=== PATIENT | female | born 1945 | race American Indian/Alaskan Native ===

== ENCOUNTER 2016-09-29 07:45 | Inpatient (IN) | payer MEDICARE ==
[2013-02-22 12:49] VITALS: BMI 28.3
[2016-09-29] MEDS ORDERED: Bacitracin 150,000 UNIT in Sodium Chloride 0.9% Irrig 3,000 ML IR SCH (10:31)
[2016-09-29] MEDS ORDERED: Bupivacaine Liposomal Inj 20 ml INFIL ONE (11:17)
[2016-09-29] MEDS ORDERED: ceFAZolin IV 2 gm in Dextrose 1 GM/50 ML BAG IVPB ONE (11:28)
[2016-09-29] MEDS ORDERED: Lactated Ringer's 1,000 ML IV ONE ×2 (11:35→13:57)
[2016-09-29] MEDS ORDERED: Propofol 10 mg/ml Inj (20 ML) ONE (11:35)
--- NOTE | 2016-09-29 11:41 | CP.PCM.HP ---
History of Present Illness - History of Present Illness History of Present Illness: 70F with right shoulder DJD and rotator cuff complete tear failed conservative mgmt and elected for total shoulder replacement. PAT and clearance on chart Dr. Clarke, reviewed. Present on Admission - Present on Admission Any Indicators Present on Admission: No Review of Systems - Review of Systems All systems: reviewed and no additional remarkable complaints except - Musculoskeletal Musculoskeletal: As Per HPI - Hematologic/Lymphatic Hematologic: absent: As Per HPI, Easy Bleeding, Easy Bruising, Lymphadenopathy, Other Past Patient History - Past Medical History & Family History Past Medical History?: Yes - Past Social History Smoking Status: Light Smoker < 10 Cigarettes Daily - CARDIAC Hx Cardiac Disorders: No - PULMONARY Hx Respiratory Disorders: No - NEUROLOGICAL Hx Neurological Disorder: No - HEENT Hx HEENT Problems: No - RENAL Hx Chronic Kidney Disease: No - ENDOCRINE/METABOLIC Hx Endocrine Disorders: Yes Hx Diabetes Mellitus Type 2: Yes - HEMATOLOGICAL/ONCOLOGICAL Hx Blood Disorders: No - INTEGUMENTARY Hx Dermatological Problems: Yes Other/Comment: HX: LEFT BREAST MASS - MUSCULOSKELETAL/RHEUMATOLOGICAL Hx Musculoskeletal Disorders: Yes Hx Arthritis: Yes Hx Falls: Yes Other/Comment: HX: FX: LEFT PATELLA. HX: SPRAIN RIGHT ROTATOR CUFF - GASTROINTESTINAL Hx Gastrointestinal Disorders: Yes - GENITOURINARY/GYNECOLOGICAL Hx Genitourinary Disorders: No - PSYCHIATRIC Hx Psychophysiologic Disorder: No Hx Substance Use: No - SURGICAL HISTORY Hx Surgeries: Yes Hx Orthopedic Surgery: Yes (REPAIR FX. LEFT KNEE-PATELLA) Other/Comment: HX: LEFT BREAST LUMPECTOMY - ANESTHESIA Hx Anesthesia: Yes Hx Anesthesia Reactions: No Hx Malignant Hyperthermia: No Meds Allergies/Adverse Reactions: Allergies Allergy/AdvReac Type Severity Reaction Status Date / Time No Known Allergies Allergy Verified 02/22/13 12:47 Physical Exam - Expanded Upper Extremities Exam Right Shoulder exam: tenderness, tenderness over AC joint, normal inspection Elbow exam: full ROM Forearm Wrist exam: normal inspection Neuro motor exam: finger 2-5 abduction intact, thumb abduction, thumb IP flexion intact, thumb opposition intact, wrist extension intact Neurosensory exam: median nerve intact, radial nerve intact, ulnar nerve intact Vascular exam: radial pulse, ulnar pulse Results - Vital Signs Recent Vital Signs: Last Vital Signs Temp 96.4 F L 09/29/16 09:13 Pulse 62 09/29/16 09:13 Resp 20 09/29/16 09:13 BP 101/56 L 09/29/16 09:13 Pulse Ox 96 09/29/16 09:13 - Labs Result Diagrams: 09/30/16 08:08 09/30/16 08:08 Labs: Laboratory Results - last 24 hr 09/29/16 09/29/16 09:40 09:59 POC Glucose (mg/dL) 189 H Blood Type O POSITIVE Antibody Screen Negative Assessment & Plan (1) Degenerative joint disease, shoulder, right Assessment and Plan: NPO for total shoulder replacement Status: Acute (2) Diabetes Assessment and Plan: accucheck cont home meds Status: Acute
[2016-09-29] MEDS ORDERED: Sodium Chloride 0.9% 20 ML IV ONE ×2 (12:51→15:04)
[2016-09-29] MEDS ORDERED: HYDROmorphone 0.5 mg/0.5 ml ISec IVP PRN (13:28)
[2016-09-29] MEDS ORDERED: Lactated Ringer's 1,000 ML IV SCH (13:30)
[2016-09-29] MEDS ORDERED: Neostigmine Methylsulfate 3mg/3ml Syringe IV ONE (14:40)
[2016-09-29] MEDS ORDERED: Bupivacaine 0.5% Inj(30mL) ONE (15:04)
--- NOTE | 2016-09-29 15:13 | PCM.SURG1 ---
Surgeon's Initial Post Op Note - Surgeon's Notes Surgeon: Magdalena GRIGSBY MD Night Monitor: Michaela RAMOS PA-C Type of Anesthesia: General Endo Anesthesia Administered By: DR CHAPMAN Pre-Operative Diagnosis: RIGHT SHOULDER DJD, ROTATOR CUFF TEAR Operative Findings: SAME Post-Operative Diagnosis: SAME Operation Performed: RIGHT TOTAL SHOULDER REPLACEMENT (REVERSE) Specimen/Specimens Removed: bone left shoulder Estimated Blood Loss: EBL {In ML}: 200 Blood Products Given: N/A Drains Used: No Drains Post-Op Condition: Fair Date of Surgery/Procedure: 09/29/16 Time of Surgery/Procedure: 15:13
[2016-09-29] MEDS ORDERED: Sodium Chloride 0.9% 1,000 ML IV SCH (15:15)
--- NOTE | 2016-09-29 15:34 | OP ---
PROCEDURE DATE: 09/29/2016 PREOPERATIVE DIAGNOSIS: Right shoulder rotator cuff arthropathy. POSTOPERATIVE DIAGNOSIS: Right shoulder rotator cuff arthropathy. PROCEDURE: Right reverse total shoulder. SURGEON: Dr. Morrison MICROGRAPHICS SERVICES SUPERVISOR: Dr. Morrison was assisted by Vincenzo Lake, physician head start assistant teacher and a third year medical student. Ms. Lake was scrubbed and present throughout the case and helped with preoperative patient positioning, retraction throughout the case as well as wound closure. ANESTHESIA: General. COMPLICATIONS: None. ESTIMATED BLOOD LOSS: 200 mL. IMPLANT: Biomet reverse total shoulder system. INDICATIONS FOR PROCEDURE: This is a 70-year-old female with longstanding right shoulder pain and dy sfunction. Clinical examination was consistent with pain and weakness with resisted abduction and fo rward flexion, mild to moderate loss of forward flexion. Radiographic examination consistent with a high riding humeral head, MRI consistent with a chronic retracted rotator cuff with some degenerative changes. After a period of failed nonsurgical management, recommendations were for a right reverse total shoulder replacement. The risks, benefits, and alternatives of procedure were discussed with t he patient and informed consent was obtained. OPERATIVE PROCEDURE: After surgical site was found and verified in preoperative holding area, patien t taken to the operating room and placed supine on the operating room table. After the administratio n of general anesthesia, patient received 2 grams of Ancef IV. The patient was positioned in the stew ch chair position. Care was taken to make sure all bony prominences and areas were well padded and p rotected and the right upper extremity was prepped and draped in usual sterile fashion. Approximatel y a 10 cm oblique incision was made over the deltopectoral interval. The skin was incised and the so ft tissue was dissected bluntly down to the brachiocephalic vein, which was identified and gently ret racted laterally. Deltopectoral groove was split down to the fascia, the fascia was incised. The lo ng head of biceps tendon was identified, tagged and resected off of the proximal humerus. At this po int, the subscapularis was identified, tagged and resected off of the proximal humerus. The humeral head was dislocated. Step drill was used to drill into the medullary canal of the proximal humerus a nd the medullary canal of the proximal humerus was reamed and broached sequentially to allow for a 9 press-fit stem. Care was to maintain proper aversion while this was being done. Prior to that, our humeral head resection was done and the medullary canal of the proximal humerus was then reamed and b roached sequentially to allow for a 9 mm press-fit stem. With the trial stem in place, attention was directed to the glenoid. Once the glenoid was adequately exposed, the center of the glenoid was jaqui ntified and the guide pin for our central hole was then drilled. Using the appropriate reamer, the r eamer was placed over the guide pin and our central hole was drilled. At this point, the shoulder jd int was irrigated with antibiotic saline solution. The bony surfaces were dried. The actual basepla te was then impacted into place. The appropriate length central screw was then inserted and the base plate was further fixed with 4 additional screws. At this point, the wound was irrigated and then, t he glenosphere was then impacted into place. With that trial, bearing was then inserted over the tri al stem and the shoulder joint was reduced. It was taken through a range of motion and was noted to be stable with internal rotation to the belly, easily 30-40 degrees of external rotation and 100 degr ees of forward flexion without difficulty. The shoulder was dislocated and the trial components were removed and the shoulder joint was once again pulse lavaged. The actual stem was then impacted into place with the actual bearing. The shoulder was once again reduced and taken through a range of mot ion and was noted to be stable. Subscapularis that was previously tagged was then repaired through u sing drill holes through the proximal humerus. At this point, the deltopectoral interval was loosely approximated with 0 Vicryl suture. Subcutaneous tissue was closed using 0 Vicryl and 2-0 Vicryl sut ure and the skin was closed using 3-0 nylon. A sterile dressing was applied. Abduction pillow sling was placed and patient was awakened from the procedure, taken to recovery room in stable condition. Daniel Morrison MD cc: [id number] TT: 09/29/2016 15:33:48 sn
--- NOTE | 2016-09-29 15:39 | RAD ---
PROCEDURE: Radiographs of the Right Shoulder HISTORY: s/p total shoulder, pt in pacu COMPARISON: None available FINDINGS: Examination limited by habitus. BONES: Osseous demineralization. Degenerative changes. Status post right shoulder total arthroplasty. Alignment appears satisfactory. Soft tissue swelling compatible with recent postsurgical status. The distal clavicle and underlying ribs appear intact. IMPRESSION: Right shoulder arthroplasty.
--- NOTE | 2016-09-29 15:43 | PCM.ANESB1 ---
Interscalene Block - Brachial Plexus Date of Procedure: 09/29/16 Anesthesiologist: Carlos Pre-Procedure Diagnosis: Right rotator cuff sprain Post-Procedure Diagnosis: Right rotator cuff sprain Procedure Performed: Interscalene Block of Brachial Plexus Right - Procedure Interscalene Block of Brachial Plexus: This procedure was explained to the patient that it is for post-operative pain management. Consent was obtained after a thorough discussion with the patient regarding the benefits and possible complications of local anesthetic block of the Brachial Plexus at the Interscalene area. The patient was brought to the Operating Room and standard monitors were applied. Time out was held with the circulating nurse to confirm the correct surgery and appropriate block. After applying Oxygen by nasal cannula and administering IV Sedation, the patient's head was gently rotated away from the operative shoulder and the anterior scalene groove was carefully palpated. The ultrasound transducer was then applied to the skin in the transverse plane and the brachial plexus was visualized lateral to the carotid artery and in between the anterior and middle scalene muscles. After identification,the anterior lateral portion of the neck was prepped with Betadine solution three times and Lidocaine 1% was injected subcutaneously for topical analgesia. At this point, a # 22 gauge Stimuplex 2 inches insulated needle was inserted into the interscalene groove and directed in a caudal and midline direction. The needle was inserted lateral to the ultrasound transducer in-plane towards the brachial plexus in a [id number] direction. Needle advancement was performed carefully under direct ultrasound visualization. . After repeated negative aspiration, 20 mL of 0.25% mL bupivicaine were injected. Under ultrasound guidance the local anesthetics were observed surrounding the roots of the brachial plexus. The needle was removed intact and sterile dressing was applied. The patient had stable vital signs, was conscious and in no apparent distress. 7 mg of dexamethasone were injected IV slowly.
[2016-09-29] MEDS ORDERED: ceFAZolin IV 2 gm in Dextrose 2 GM/100 ML BAG IVPB SCH (16:00)
[2016-09-29] MEDS ORDERED: (Novolin R) Insulin Human Regular 100 units/ml vial SC SCH (16:30)
[2016-09-29] MEDS: ceFAZolin IV 2 gm in Dextrose 2 GM/100 ML BAG IVPB SCH (21:01)
[2016-09-30] MEDS: HYDROmorphone 0.5 mg/0.5 ml ISec IVP PRN ×2 (01:35→06:06)
[2016-09-30] MEDS: ceFAZolin IV 2 gm in Dextrose 2 GM/100 ML BAG IVPB SCH (03:57)
--- NOTE | 2016-09-30 07:12 | CP.PCM.PN ---
Subjective - Date & Time of Evaluation Date of Evaluation: 09/30/16 Time of Evaluation: 06:30 - Subjective Subjective: Patient states shoulder pain is well controlled. Denies CP/SOB/dizziness. She lives alone. She requests Desirae gama. Objective - Vital Signs/Intake and Output Vital Signs (last 24 hours): Temp Pulse Resp BP Pulse Ox 98.0 F 70 20 102/64 97 09/30/16 04:15 09/30/16 04:15 09/30/16 04:15 09/30/16 04:15 09/30/16 04:15 Intake and Output: 09/30/16 09/30/16 06:59 18:59 Intake Total 1070 Output Total 150 Balance 920 - Medications Medications: Current Medications Acetaminophen (Tylenol 325mg Tab) 650 mg PO Q4 PRN PRN Reason: Fever 101 degrees fahrenheit Aspirin (Ecotrin) 81 mg PO DAILY [facility] Docusate Sodium (Colace) 100 mg PO BID [facility] Last Admin: 09/29/16 18:45 Dose: 100 mg Hydromorphone HCl (Dilaudid) 0.5 mg IVP Q4H PRN PRN Reason: Pain, severe (8-10) Last Admin: 09/30/16 06:06 Dose: 0.5 mg Lactated Ringer's (Lactated Ringer's) 1,000 mls @ 100 mls/hr IV .Q10H [facility] Sodium Chloride (Sodium Chloride 0.9%) 1,000 mls @ 60 mls/hr IV .[id number] [facility] Stop: 10/01/16 00:34 Last Admin: 09/29/16 21:02 Dose: 60 mls/hr Insulin Human Regular (Novolin R) 0 unit SC ACHS [facility] PRN Reason: Protocol Metformin HCl (Glucophage) 1,000 mg PO BIDBS [facility] Last Admin: 09/29/16 18:45 Dose: 1,000 mg Oxycodone/Acetaminophen (Percocet 5/325 Mg Tab) 1 tab PO Q4 PRN PRN Reason: Pain, moderate (4-7) Stop: 10/02/16 15:15 Pioglitazone HCl (Actos) 30 mg PO DAILY [facility] Rosuvastatin Calcium (Crestor) 5 mg PO HS [facility] Last Admin: 09/29/16 21:09 Dose: 5 mg - Extremities Exam Additional comments: RUE: dressing intact. +ROM wrist/fingers/thumb. Sensation intact +radial pulse. sling intact. ice applied. Assessment and Plan (1) Degenerative joint disease, shoulder, right Assessment & Plan: POD#1 s/p right total shoulder replacement -patient lives alone, d/w Dr. Clarke regarding rehab placement -PT/OT -OOB -IS-f/u labs -d/w Dr. Morrison, agrees with above Status: Acute (2) Diabetes Assessment & Plan: [facility] meds medical consulation Status: Acute
[2016-09-30] MEDS: (Novolin R) Insulin Human Regular 100 units/ml vial SC SCH ×3 (07:52→17:34)
[2016-09-30 08:19] LABS: MEAN CELL VOLUME 88.5 fL (81.0-99.0); MEAN CORPUSCULAR HEMOGLOBIN 28.5 pg (27.0-31.0); MEAN CORPUSCULAR HGB CONC 32.2 g/dL (33.0-37.0); MEAN PLATELET VOLUME 9.5 fL (7.2-11.7); RED CELL DISTRIBUTION WIDTH 13.6 % (11.5-14.5); WHITE BLOOD COUNT 14.2 K/uL (4.8-10.8)
[2016-09-30 08:26] LABS: POTASSIUM 4.1 mmol/L (3.6-5.2)
[2016-09-30 08:29] LABS: CALCIUM 9.4 mg/dl (8.6-10.4)
--- NOTE | 2016-09-30 09:02 | CP.PCM.PN ---
Subjective - Date & Time of Evaluation Date of Evaluation: 09/30/16 Time of Evaluation: 09:01 - Subjective Subjective: Agree with PA note. Afebrile WBC 14.2 Hg 9.7 NVI distally OOB today RUE in sling D/C planning Objective - Vital Signs/Intake and Output Vital Signs (last 24 hours): Temp Pulse Resp BP Pulse Ox 98.0 F 70 20 102/64 97 09/30/16 04:15 09/30/16 04:15 09/30/16 04:15 09/30/16 04:15 09/30/16 04:15 Intake and Output: 09/30/16 09/30/16 06:59 18:59 Intake Total 1070 Output Total 150 Balance 920 - Medications Medications: Current Medications Acetaminophen (Tylenol 325mg Tab) 650 mg PO Q4 PRN PRN Reason: Fever 101 degrees fahrenheit Aspirin (Ecotrin) 81 mg PO DAILY [facility] Docusate Sodium (Colace) 100 mg PO BID [facility] Last Admin: 09/29/16 18:45 Dose: 100 mg Hydromorphone HCl (Dilaudid) 0.5 mg IVP Q4H PRN PRN Reason: Pain, severe (8-10) Last Admin: 09/30/16 06:06 Dose: 0.5 mg Lactated Ringer's (Lactated Ringer's) 1,000 mls @ 100 mls/hr IV .Q10H [facility] Sodium Chloride (Sodium Chloride 0.9%) 1,000 mls @ 60 mls/hr IV .[id number] [facility] Stop: 10/01/16 00:34 Last Admin: 09/29/16 21:02 Dose: 60 mls/hr Insulin Human Regular (Novolin R) 0 unit SC ACHS [facility] PRN Reason: Protocol Last Admin: 09/30/16 07:52 Dose: 3 unit Metformin HCl (Glucophage) 1,000 mg PO BIDBS [facility] Last Admin: 09/29/16 18:45 Dose: 1,000 mg Oxycodone/Acetaminophen (Percocet 5/325 Mg Tab) 1 tab PO Q4 PRN PRN Reason: Pain, moderate (4-7) Stop: 10/02/16 15:15 Pioglitazone HCl (Actos) 30 mg PO DAILY [facility] Rosuvastatin Calcium (Crestor) 5 mg PO HS [facility] Last Admin: 09/29/16 21:09 Dose: 5 mg - Labs Labs: 09/30/16 08:08 09/30/16 08:08
--- NOTE | 2016-09-30 09:55 | CON ---
DATE: 09/30/2016 SUBJECTIVE: I know her very well and I cleared her for surgery for a right rotator cuff tear with Dr. Morrison. She is a 70-year-old female I know very well for many years, who just had surgery on her right rotator cuff. She is in bed. She is medicated. She is in a lot of pain. PAST MEDICAL HISTORY: She has diabetes, left breast mass, left patellar surgery , now right shoulder surgery, colonic polyps, high cholesterol, constipation. She has had left knee repair, endoscopies, colonoscopies, left breast lumpectomy , now a right rotator cuff repair. SOCIAL HISTORY: She still smokes. Occasional alcohol. No drugs. FAMILY HISTORY: There is hypertension and diabetes in the family. She watches her diabetes quite well. MEDICATIONS: She takes aspirin, diabetic medications and herbals. REVIEW OF SYSTEMS: No vision changes. No hearing changes, but old. She has no sore throat. No chest pain, no shortness of breath, no abdominal pain, but gets constipated. She has right shoulder pain for years. She also had a total abdominal hysterectomy. ALLERGIES: She has no known drug allergies. ADDITIONAL MEDICATIONS: She takes vitamins, Ecotrin, Actos, metformin, Advil and Lipitor as regular medications. PHYSICAL EXAMINATION: VITAL SIGNS: Show a 98 temp, 70 pulse, 102/64 blood pressure, 20 respiratory rate, 97% O2 sat on 2 L nasal cannula. GENERAL: She is groggy right now. HEENT: Head is atraumatic, normocephalic. Extraocular muscles are intact. Throat is moist. NECK: Supple. HEART: Regular rate. LUNGS: Decreased breath sounds with poor inspiration, but no wheezes, rhonchi or rales. ABDOMEN: Soft, obese, nontender. Positive bowel sounds. EXTREMITIES: Lower extremities have no edema. The right shoulder is bandaged. She is in pain. She is getting medicated. PLAN: She is currently getting Dilaudid for the pain. We are only doing labs which are blood sugars 189 up to 230 and it is 365. I will put her on coverage. Also I will put her back on her medications. She also will start eating soon and I am going to work with case management to go to [facility] for subacute rehab. She requested she wants to go there. We will check her labs tomorrow. Continue postop care, pain meds, checking blood sugars and she will need to go to subacute rehab at [facility] before she goes home. She is here for status post right shoulder surgery and diabetes and constipation. Thank you very much for allowing me to participate in her care. Redd Clarke DO cc: [id number] TT: 09/30/2016 09:53:55 Confirmation # [id number] Dictation # [id number] dn MTDD
[2016-09-30] MEDS: Oxycodone/Acetaminophen 5/325 mg Tab PO PRN ×2 (17:39→23:03)
[2016-10-01] MEDS ORDERED: Sodium Chloride 0.9% 500 ML IV ONE (00:15)
[2016-10-01 07:49] LABS: HEMATOCRIT 30.9 % (34.0-47.0); MEAN CELL VOLUME 89.5 fL (81.0-99.0); MEAN CORPUSCULAR HEMOGLOBIN 28.8 pg (27.0-31.0); MEAN CORPUSCULAR HGB CONC 32.2 g/dL (33.0-37.0); MEAN PLATELET VOLUME 10.4 fL (7.2-11.7); RED CELL DISTRIBUTION WIDTH 13.5 % (11.5-14.5); WHITE BLOOD COUNT 13.8 K/uL (4.8-10.8)
[2016-10-01 07:55] LABS: ALB/GLOB RATIO 1.2 (1.0-2.1); BILIRUBIN,TOTAL 0.7 mg/dL (0.2-1.3); CALCIUM 9.4 mg/dl (8.6-10.4); TOTAL PROTEIN 6.3 g/dL (6.3-8.3)
--- NOTE | 2016-10-01 21:41 | PN ---
DATE: 10/01/2016 HISTORY OF PRESENT ILLNESS: I saw her earlier this morning at [facility]. I learned that the computer systems are down. I was not able to dictate until tonight. She is comfortable in bed. Sti ll with the pain in the shoulder status post surgery, but she is a little bit better, less groggy. W ants to go to [facility] for rehab before she goes home. She is currently on Actos, Colace, Crest or, Dilaudid, Ecotrin, Glucophage, insulin coverage, 0.9 normal saline, Toradol for pain, and Tylenol for pain. Pain is still there. She is moving a little bit. She is walking around, but difficult t o move her arms. PHYSICAL EXAMINATION: VITAL SIGNS: She has a 98.3 temp, 68 pulse, 106/70 blood pressure, 18 respiratory rate, 96% to 97% O 2 sat on room air. HEENT: Head is atraumatic, normocephalic. Throat is moist. NECK: Supple. HEART: Regular rate. LUNGS: Decreased breath sounds, but clear. I asked her to use the incentive spirometry to prevent p neumonias. EXTREMITIES: Her lower extremities have no edema. The right arm is bandaged status post surgery. LABORATORY DATA: She only had an SMA-20 today. I do not know what happened to the CBC. She has a 1 38 sodium, potassium is 4, BUN 16, creatinine 0.2, a 174 sugar. It is up to 210 and 262. I will adj ust her blood sugars. Calcium is 9.4, total bili is 0.7, AST is 44, ALT is 20, alk phos 69, total pr otein 6.3. Last white count was 14.2. That is why I wanted a CBC today. I will order one tomorrow. She is being seen by the orthopedic doctor. She is here for status post right shoulder surgery, diab etes, constipation, hypertension, hypotension. Will adjust her medications for the diabetes and will put for a CBC tomorrow morning to make sure that 14,000 white count resolved, and hopefully she can go to [facility] tomorrow. Redd Clarke DO cc: [id number] TT: 10/01/2016 21:41:47 Confirmation # [id number] Dictation # [id number] dn
[2016-10-01] MEDS: (Novolin R) Insulin Human Regular 100 units/ml vial SC SCH (23:04)
[2016-10-02 07:22] LABS: HEMATOCRIT 27.4 % (34.0-47.0); MEAN CELL VOLUME 88.1 fL (81.0-99.0); MEAN CORPUSCULAR HEMOGLOBIN 28.9 pg (27.0-31.0); MEAN CORPUSCULAR HGB CONC 32.8 g/dL (33.0-37.0); MEAN PLATELET VOLUME 9.6 fL (7.2-11.7); RED CELL DISTRIBUTION WIDTH 13.4 % (11.5-14.5); WHITE BLOOD COUNT 12.6 K/uL (4.8-10.8)
[2016-10-02] MEDS ORDERED: Sodium Chloride 0.9% 500 ML IV ONE (07:42)
[2016-10-02 07:46] LABS: POTASSIUM 3.9 mmol/L (3.6-5.2)
[2016-10-02 07:48] LABS: ALB/GLOB RATIO 1.1 (1.0-2.1); BILIRUBIN,TOTAL 0.8 mg/dL (0.2-1.3); TOTAL PROTEIN 6.3 g/dL (6.3-8.3)
[2016-10-02 07:49] LABS: CALCIUM 9.3 mg/dl (8.6-10.4)
[2016-10-02] MEDS: (Novolin R) Insulin Human Regular 100 units/ml vial SC SCH ×2 (07:50→12:06)
--- NOTE | 2016-10-02 08:21 | CP.PCM.PN ---
Subjective - Date & Time of Evaluation Date of Evaluation: 10/02/16 Time of Evaluation: 08:18 - Subjective Subjective: Patient comfortable, medication controlling pain now. Denies CP/SOB/dizziness. Denies numbness/tingling. Objective - Vital Signs/Intake and Output Vital Signs (last 24 hours): Temp Pulse Resp BP Pulse Ox 98.7 F 78 20 94/65 L 95 10/02/16 05:10 10/02/16 05:10 10/02/16 05:10 10/02/16 05:10 10/02/16 05:10 - Medications Medications: Current Medications Aspirin (Ecotrin) 81 mg PO DAILY [facility] Last Admin: 09/30/16 10:42 Dose: 81 mg Docusate Sodium (Colace) 100 mg PO BID [facility] Last Admin: 09/30/16 17:33 Dose: 100 mg Insulin Human Regular (Novolin R) 0 unit SC ACHS [facility] PRN Reason: Protocol Last Admin: 10/02/16 07:50 Dose: 2 unit Ketorolac Tromethamine (Toradol) 15 mg IVP Q6 PRN PRN Reason: Pain, Mild (1-3) Metformin HCl (Glucophage) 1,000 mg PO BIDBS [facility] Last Admin: 10/02/16 07:50 Dose: 1,000 mg Pioglitazone HCl (Actos) 45 mg PO DAILY [facility] Rosuvastatin Calcium (Crestor) 5 mg PO HS [facility] Last Admin: 10/01/16 23:03 Dose: Not Given Tramadol HCl (Ultram) 50 mg PO Q8H PRN PRN Reason: Pain, severe (8-10) - Labs Labs: 10/02/16 07:05 10/02/16 07:05 - Constitutional Appears: Well, No Acute Distress - Extremities Exam Additional comments: R shoulder: +ROM wrist/fingers, sensation intact, +radial pulse. Incision intact , dry, no erythema, dressing changed. Sling intact. - Neurological Exam Neurological Exam: Alert, Awake, Oriented x3 - Psychiatric Exam Psychiatric exam: Normal Affect, Normal Mood - Skin Skin Exam: Normal Color, Warm Assessment and Plan (1) Degenerative joint disease, shoulder, right Assessment & Plan: POD#3 s/p right total shoulder replacement -ortho stable for d/c to rehab today -encourage PT/OOB -continue sling -f/u 7-10 days call for appointment -dressing change daily -wbc downtrending, pt given decadron -d/w Dr. Morrison, agrees with above Status: Acute (2) Diabetes Assessment & Plan: cont home meds Status: Acute
--- NOTE | 2016-10-02 08:25 | CP.PCM.DIS ---
Provider - Provider Date of Admission: 09/29/16 08:52 Attending physician: Daniel Morrison MD Diagnosis - Discharge Diagnosis (1) Degenerative joint disease, shoulder, right Status: Acute (2) Diabetes Status: Acute Hospital Course - Lab Results Lab Results: Most Recent Lab Values WBC 12.6 K/uL (4.8-10.8) H 10/02/16 07:05 RBC 3.11 Mil/uL (3.80-5.20) L 10/02/16 07:05 Hgb 9.0 g/dL (11.0-16.0) L 10/02/16 07:05 Hct 27.4 % (34.0-47.0) L 10/02/16 07:05 MCV 88.1 fL (81.0-99.0) 10/02/16 07:05 MCH 28.9 pg (27.0-31.0) 10/02/16 07:05 MCHC 32.8 g/dL (33.0-37.0) L 10/02/16 07:05 RDW 13.4 % (11.5-14.5) 10/02/16 07:05 Plt Count 198 K/uL (130-400) 10/02/16 07:05 MPV 9.6 fL (7.2-11.7) 10/02/16 07:05 Sodium 136 mmol/L (132-148) 10/02/16 07:05 Potassium 3.9 mmol/L (3.6-5.2) 10/02/16 07:05 Chloride 105 mmol/L (98-107) 10/02/16 07:05 Carbon Dioxide 23 mmol/L (22-30) 10/02/16 07:05 Anion Gap 11 (10-20) 10/02/16 07:05 BUN 13 mg/dL (7-17) 10/02/16 07:05 Creatinine 1.1 MG/DL (0.7-1.2) 10/02/16 07:05 Est GFR ( Amer) 59 10/02/16 07:05 Est GFR (Non-Af Amer) 49 10/02/16 07:05 POC Glucose (mg/dL) 215 mg/dL (65-110) H 10/01/16 22:00 Random Glucose 142 mg/dL (65-105) H 10/02/16 07:05 Calcium 9.3 mg/dl (8.6-10.4) 10/02/16 07:05 Total Bilirubin 0.8 mg/dL (0.2-1.3) 10/02/16 07:05 AST 34 U/L (14-36) 10/02/16 07:05 ALT 15 U/L (9-52) 10/02/16 07:05 Alkaline Phosphatase 68 U/L (38-126) 10/02/16 07:05 Total Protein 6.3 g/dL (6.3-8.3) 10/02/16 07:05 Albumin 3.3 g/dL (3.5-5.0) L 10/02/16 07:05 Globulin 3.0 gm/dL (2.2-3.9) 10/02/16 07:05 Albumin/Globulin Ratio 1.1 (1.0-2.1) 10/02/16 07:05 Blood Type O POSITIVE 09/29/16 09:59 Antibody Screen Negative 09/29/16 09:59 Discharge Plan - Follow Up Plan Condition: GOOD Disposition: HOME/ ROUTINE
[2016-10-02 08:36] VITALS: O2SAT 100
--- NOTE | 2016-10-02 12:48 | DS ---
This is her third overnight. We are trying to get her to [facility] for physical therapy. She is status post right shoulder surgery with Dr. Morrison, the orthopedic doctor. She tells me she needs physical therapy, she is still weak. She does walk a little bit, but she does not feel great with t he right arm. I would like her to be there for at least a week. She will go to [facility] on Acto s, Colace, Crestor, Ecotrin, Glucophage, insulin coverage, IV fluids if she needs it, and Tylenol. I will put her on some tramadol. Stopping the IV pain medications. She has not been getting them any way. She slept fairly well last night. Looking forward to going to [facility] today. PHYSICAL EXAMINATION: GENERAL: She is alert. She is looking at me. She is alert and oriented x 3. She is comfortable be sides the discomfort in the right shoulder. VITAL SIGNS: 98.7 temp, 78 pulse, blood pressures have been about 106/70 and the last one was 94/65, respiratory rate 20, and oxygen sat is 95. HEENT: Head is atraumatic, normocephalic. HEART: Regular rate. LUNGS: Decreased breath sounds but clear. She is instructed to use incentive spirometry every hour to prevent pneumonia. ABDOMEN: Soft, nontender, positive bowel sounds. EXTREMITIES: Lower extremities have no edema. The right shoulder is bandaged and sore, status post surgery. LABORATORY DATA: She has a 138 sodium, potassium is 4, BUN 16, creatinine 1.2. Last blood sugar was 215. She is on coverage and diabetes medications, which were increased last night. Hopefully, she w ill do better today. AST is 44, ALT is 20, alk phos 69, total protein 6.3, white count 13.8, hemoglob in 9.9, platelets of 225. Overall, she is improving. We will get her to [facility] today, I believe, that is my plan. We w ill check labs there and I will see her there tomorrow. The patient had right shoulder surgery. Redd Clarke DO cc: [id number] TT: 10/02/2016 12:48:11 rn
[2016-10-02 16:56] VITALS: BP 95/62; PULSE 74; RESP 20; TEMP 99
== END 2016-10-02 16:30 | DRG 483 ==
LOC: C.9S 08:52 → C.6T 19:27
PROVIDERS: ADMIT Orthopaedic Surgery; ATTEND Orthopaedic Surgery
PROC: 0RRJ00Z Replacement of Right Shoulder Joint with Reverse Ball and Socket Synthetic Substitute, Open Approach (ICD-10-PCS; principal; 2016-09-29 11:35)
DX: M19.011 Primary osteoarthritis, right shoulder (principal); M75.121 Complete rotator cuff tear or rupture of right shoulder, not specified as traumatic; E11.9 Type 2 diabetes mellitus without complications; I10 Essential (primary) hypertension; F17.210 Nicotine dependence, cigarettes, uncomplicated; Z79.4 Long term (current) use of insulin; E78.00 Pure hypercholesterolemia, unspecified; K59.00 Constipation, unspecified